=== PATIENT | female | born 1975 | race Caucasian/White ===

== ENCOUNTER → 2017-01-19 | Outpatient (CLI) | payer OTHER ==
[~2017-01-19] MED LIST: ALPR0.5T8 PO; ESCI20TA PO; IOHEXOL 180 MG/ML 20ml INJECTION ONE; LIDOCAINE 1% (10mg/ml) 5ml VIAL ONE; MethylPREDNISolone ACETATE 40mg/1ml ONE; TRAZ-173 PO
--- NOTE | 2017-01-19 12:58 | DI ---
Indication:ITS.REASON: M54.5 LBP Procedure:EPIDURAL INJ.SPINE W FLUO CATH LUMBAR EPIDURAL INJECTION: The patient has low back and radicular pain. The patient has had a previous epidural that provided excellent relief. The details of the procedure, including the benefits, risks, and alternatives were explained to the patient. All of their questions were answered. They stated that they understood and wished to proceed. Informed consent was then obtained. A pre-procedural timeout was performed to confirm the correct patient and procedure. Utilizing aseptic technique, local lidocaine anesthetic, and fluoroscopic guidance throughout, a 22-gauge spinal needle was directed into the lumbar epidural space via an interlaminar approach at the L5-S1 level. Contrast was injected to assure proper positioning of the needle tip. A fluoroscopic image was then taken and archived. Subsequently, 120 mg Depo-Medrol was injected into the epidural space. The patient tolerated the procedure well. IMPRESSION: Successful lumbar epidural steroid injection. Fluoroscopy dose: 8.05 mGy (Cumulative air kerma) Chris Cope RPA/YAIR performed this under my personal supervision. .
== END ==
LOC: IMA 10:52
PROVIDERS: ATTEND Family Medicine
DX: M54.5 Low back pain (principal)
CPT/HCPCS: 62323; J1030; Q9965

== ENCOUNTER → 2017-03-05 | Outpatient (CLI) | payer OTHER ==
[~2017-03-05] MED LIST changes: -IOHEXOL 180 MG/ML 20ml INJECTION ONE; -LIDOCAINE 1% (10mg/ml) 5ml VIAL ONE; -MethylPREDNISolone ACETATE 40mg/1ml ONE
== END ==
LOC: LABN 16:16
PROVIDERS: ATTEND Family Medicine
DX: R19.7 Diarrhea, unspecified (principal)
CPT/HCPCS: 87507

== ENCOUNTER 2017-12-30 09:41 | Inpatient (IN) ==
[2017-12-30] MEDS ORDERED: NS 1,000 ML IV ONE (10:05)
[2017-12-30] MEDS ORDERED: SALINE FLUSH 10ml SYRINGE IVF PRN (10:05)
--- OUTSIDE RECORDS SUMMARY | 2017-12-30 10:11 | External Medical Summary | Continuity of Care Document ---
:1975 Author Organization [facility] Allergies Active Description Code Type Severity Reaction Onset Reported/ Identified Relationship Clinical to Patient Status Yes No Known 21477 3 N/A N/A Drug 0 Allergies Yes latex 8921 1 N/A Unknown Medications There is no data. Problems There is no data. Procedures There is no data. Results There is no data. Encounters ACCT No. Visit Discharge Status Pt. Type Provider Facility Loc./Unit Complaint Date/Time [id number] 08/07/2016 08/07/2016 [facility] Outpatient Etienne, 11:15:00 23:59:59 Marty Thorne [id number] 07/21/2016 07/21/2016 [facility] Outpatient Ronan, 09:30:00 23:59:59 Reginald Ly [id number] 06/17/2016 06/17/2016 [facility] Outpatient Etienne, 15:15:00 23:59:59 Grace Mathews
--- OUTSIDE RECORDS SUMMARY | 2017-12-30 10:11 | External Medical Summary | Summary of Care ---
:1975 Author Name Leah Kilpatrick M.D. Address [address], [place] [id number] Care Team Providers Name Role Phone Kinsey P.A., Cande Unavailable Unavailable Leah Kilpatrick M.D. 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 Started ActiveTraZODone HCl - 100 MG Oral Tablet Refills: 0 Clarence Kilpatrick M.D. Started ActiveXanax 0.5 MG Oral Tablet Refills: 0 Clarence Kilpatrick M.D. Started ActiveClonazePAM 1 MG Oral Tablet Take 1/2 tab po qhs x 1 week, then 1 tab po qhs Quantity: 30 Refills: 5 Kinsey, Cande P.A. Started Active Allergies and Adverse Reactions Name Dates Details No Known Drug Allergies Status: Active Procedures Procedure Dates Details History of Back Surgery History of Oral Surgery Tooth Extraction [place] Tooth History of Ovarian Surgery Procedures not documented Immunization Name Dates Details Immunizations not documented Family History Mother Name Dates Details Family history of hypertension (V17.49, Z82.49) Status: Active Family history of cardiac disorder (V17.49, Z82.49) Status: Active Father Name Dates Details Family history of hypertension (V17.49, Z82.49) Status: Active Family history of High cholesterol (272.0, E78.0) Status: Active Family history of sleep apnea (V19.8, Z82.0) Status: Active Social History Smoking StatusUnknown if ever smoked Vital Signs Date Test Result Details 15:27 BP Systolic 155 mm[Hg] Status: BP Diastolic 99 mm[Hg] Status: Heart Rate 88 /min Status: Height 65 in Status: Weight 156 lb Status: O2 SAT 98 % Status: Body Mass Index Calculated 25.96 kg/m2 Status: Body Surface Area Calculated 1.78 m2 Status: Results Date Description Value Details Results not documented Plan of Care Planned Observations Name Dates Details Planned Goals not documented Goal Planned Encounters Appointment; Provider: Clarence Kilpatrick On 11-Jun-2016 10:45 Instructions Instructions not documented Encounters Appointment; Clarence Kilpatrick On Encounter Diagnosis: Problem not documented 15:15
--- NOTE | 2017-12-30 10:56 | XRay Report ---
Indication: respiratory depression PROCEDURE: XR chest 1V: Encounter: Initial Comparison: None FINDINGS: The lungs are clear. There is no abnormal airspace opacity, pleural effusion or pneumothorax identified. The heart size, pulmonary vasculature and mediastinum are within normal limits. No significant skeletal abnormality is seen. IMPRESSION: No acute cardiopulmonary abnormality. .
--- NOTE | 2017-12-30 12:37 | Emergency Department Report ---
General Adult HPI - General Chief complaint: Overdose Stated complaint: over dose Time Seen by Provider: 12/30/17 10:05 - History of Present Illness HPI narrative: 42-year-old female presents with benzodiazepine overdose. Patient took approximately 20 tablets of Xanax 0.5 mg during the night last night. She also took several clonazepam tablets. She gets one tablet of each daily to use as needed. She also takes prescriptions for Adderall and fluoxetine. Mother which have been overuse or has she overdosed on today. She called her , who is not living in the house currently, and as he arrived she had a mouthful of Flexeril tablets. He swiped them out of her mouth. She had not notified him that she had taken the benzodiazepines during the night and he discovered this when he noticed how sedated she was slurred her voice was. She denies drinking alcohol overnight. She states she did want to during the night, and that she still wishes she wasn't here, but recognizes that she is to take her children. She is concerned that this overdose may cause her custody of her children during a divorce. - Related Data Home Medications Medication Instructions Recorded Confirmed ALPRAZolam [Xanax] 0.5 mg PO TID PRN 12/30/17 12/30/17 ClonazePAM [Klonopin] 1 mg PO HS 12/30/17 12/30/17 Dextroamphetamine/Amphetamine 20 mg PO BID 12/30/17 12/30/17 [Adderall 20 mg Tablet] Fluoxetine HCl 40 mg PO DAILY 12/30/17 12/30/17 Allergies Allergy/AdvReac Type Severity Reaction Status Date / Time No Known Allergies Allergy Verified 12/30/17 09:55 Review of Systems All systems: reviewed and negative except as stated PFS Patient Stated Medical History Depression Yes Clinic Medical History (Last Reviewed 10/07/17 @ 17:04 by Chris Ornelas MD) Anxiety (Chronic Medical) Depression (Chronic Medical) Surgical History: Septoplasty, uterine ablation, spine ablation, wisdom teeth Family History: Family History (Last Reviewed 10/07/17 @ 17:04 by Chris Ornelas MD) Father Arthritis HTN (hypertension) Mother Arthritis Heart attack HTN (hypertension) - Social History Smoking status: Never smoker Physical Exam - Limitations Limitations: altered mental status - General General appearance: lethargic - Normal Exams: Head:: Normocephalic without trauma Chest/Respirations:: Clear all aldrich, with good airflow, and symmetry bilaterally Cardiovascular:: Regular rate and rhythm, without murmur or gallop, Pulses 2+ all extremities, capillary refill, <2 seconds all extremities Abdomen:: Bowel sounds positive, soft, non-tender, non-distended, no hepatosplenomegaly, masses or bruits noted Neurological:: Patient is alert, and oriented, cranial nerves, motor/sensory/ cerebellar, exams w/o gross deficits, to observation - Psychiatric Psychiatric exam: Present: depressed, flat affect, suicidal ideation Course Vital Signs Temperature 97.7 F 12/30/17 09:55 Pulse Rate 79 12/30/17 09:55 Respiratory Rate 12 12/30/17 09:55 Blood Pressure 130/80 12/30/17 09:55 Pulse Oximetry 100 12/30/17 09:55 Temperature 97.7 F 12/30/17 09:55 Pulse Rate 70 12/30/17 10:20 Respiratory Rate 12 12/30/17 09:55 Blood Pressure 130/80 12/30/17 09:55 Pulse Oximetry 100 12/30/17 09:55 Medical Decision Making - MDM Narrative Medical decision making narrative: Peripheral IV started and 1 L of normal saline bolus given. EKG returns negative. Patient's respiratory status and other vitals are appropriate and stable. Medical screening panel of labs was ordered, CBC, CMP, UA, urine drug screen, alcohol level, Tylenol level, aspirin level or return normal. Urine drug screen is appropriate for meds that she normally takes. She understands that she will be admitted to the hospital overnight to make sure that she is medically stable on discharge and on discharge she will be sent to an inpatient psychiatric facility. She states she is voluntary and would like to get some help. I spoke with hospitalist and she'll be admitted to ICU. - Medical Records Medical records reviewed: Yes: I reviewed the patient's medical records. - Lab Data Lab results reviewed: Yes: I reviewed the patient's lab results. Result diagrams: 12/30/17 10:10 12/30/17 10:10 Lab Results 12/30/17 12/30/17 12/30/17 Range/Units 10:10 10:10 10:10 WBC 4.9 (4.5-11.0) T/MM3 RBC 4.81 (4.00-5.20) M/MM3 Hgb 14.2 (12-16) GM/DL Hct 43.1 (36-46) % MCV 89.6 (80-100) UM3 MCH 29.5 (26-34) UUG MCHC 32.9 (31-37) GM/DL RDW Std Deviation 41.7 (36.9-50.2) FL Plt Count 270 (130-400) T/MM3 MPV 10.8 (9.4-12.4) UM3 Immature Gran % (Auto) 0.2 (0.0-0.5) % Neut % (Auto) 46.5 (33-66) % Lymph % (Auto) 37.0 (23-45) % Bates % (Auto) 10.2 H (0-9.0) % Eos % (Auto) 4.9 H (0-4) % Baso % (Auto) 1.2 (0-2) % Neut # (Auto) 2.3 (1.8-7.7) T/MM3 Lymph # (Auto) 1.8 (1-4.8) T/MM3 Bates # (Auto) 0.5 (0-0.8) T/MM3 Eos # (Auto) 0.2 (0-0.5) T/MM3 Baso # (Auto) 0.1 (0-0.2) T/MM3 Abs Immat Gran (auto) 0.01 (0.00-0.03) T/MM3 Turbidity < 20 (0-20) Sodium 145 H (134-144) MEQ/L Potassium 4.4 (3.6-5) MEQ/L Chloride 105 (98-107) MEQ/L Carbon Dioxide 29 (22-30) MEQ/L Anion Gap 11 (5-15) MEQ/L BUN 12.0 (7-17) MG/DL Creatinine 0.7 (0.7-1.2) MG/DL GFR Calculation 92 BUN/Creatinine Ratio 17 (6-26) RATIO Glucose 89 (65-110) MG/DL Calculated Osmolality 278 (261-280) MOSM/KG Calcium 9.7 (8.4-10.2) MG/DL Total Bilirubin 0.40 (0.20-1.30) MG/DL Icterus Index < 2 (0-7) AST 26 (14-36) U/L ALT 31 (9-52) U/L Alkaline Phosphatase 51 (38-126) U/L Total Protein 7.5 (6.3-8.2) G/DL Albumin 4.4 (3.5-5.0) G/DL Globulin 3.1 (2.4-3.6) G/DL Albumin/Globulin Ratio 1.4 (1.1-2.2) RATIO Specimen Hemolysis < 15 (0-25) Ur Collection Type Urine, void-cc/notcc Urine Color Yellow (YELLOW) Urine Clarity Clear Urine pH 6.5 (5.0-8.0) Ur Specific [place] <=1.005 L (1.015-1.025) Urine Protein Negative (NEGATIVE) Urine Glucose (UA) Negative (NEGATIVE) Urine Ketones Negative (NEGATIVE) Urine Occult Blood 2+ A (NEGATIVE) Urine Nitrate Positive A (NEGATIVE) Urine Bilirubin Negative (NEGATIVE) Urine Urobilinogen 0.2 (NORMAL) EU/DL Ur Leukocyte Esterase Trace A (NEGATIVE) Urine RBC 1-3 (0-3) /HPF Urine WBC 1-3 (0-5) /HPF Ur Squamous Epith Cells 10-20 Urine Bacteria 2+ H (NEGATIVE) Ur Culture Indicated? Cult not indicated Salicylates < 1.0 L (2-20) MG/DL Acetaminophen < 10 L (10-30) UG/ML Alcohol, Quantitative <10 (<10) MG/DL - Radiology Data Radiology results reviewed: Yes: I reviewed the patient's radiology results. - EKG Data EKG #1 EKG attestation: Yes: I reviewed and interpreted this EKG. EKG shows normal: sinus rhythm Rate: normal Rhythm: NSR [place]/QRS: normal Disposition Clinical Impression: Drug overdose, Suicidal ideation Disposition: 02 To OBS [facility] [place] Prescriptions: No Action ALPRAZolam [Xanax] 0.5 mg PO TID PRN PRN Reason: Anxiety Dextroamphetamine/Amphetamine [Adderall 20 mg Tablet] 20 mg PO BID ClonazePAM [Klonopin] 1 mg PO HS Fluoxetine HCl 40 mg PO DAILY Referrals: Pete Guevara MD [Family Provider] - Time of Disposition: 12:42 - Seen By: physician
[2017-12-30] MEDS ORDERED: ONDANSETRON 4 MG/2 ML INJECTION IVP PRN (13:11)
[2017-12-30] MEDS ORDERED: ACETAMINOPHEN 500 MG TABLET PO PRN (13:22)
--- NOTE | 2017-12-30 13:23 | History & Physical Report ---
History of Present Illness Date: 12/30/17 Chief complaint: intentional drug overdose, suicide attempt HPI: Doc Choi is a 42-year-old patient of Dr. Pete Guevara who was brought into [facility] ED today, 12/30/17, after she called her estranged and reported that she had overdosed on prescription medications. She reportedly took approximately 20, Xanax 0.5mg tablets last night as well as approximately 8, clonazepam 1mg tables with the intent to harm herself. When her , who is not currently living with her, arrived, she had a mouthful of Flexeril tables which he was able to swipe out of her mouth. Upon his arrival, he also noted she was very sedated with slurred speech. She denied taking any other medications, other drug use or alcohol last night. During evaluation in the ED, she was very drowsy and stated that her "life is falling apart" and she "wanted to escape". Her reports that he recently completed treatment for alcohol abuse and that he and Doc are currently going through a divorce. Initial vital signs were stable. Labs were unremarkable with the exception of mild hypernatremia (Na 145). UA was contaminated with 10-20 squamous epithelial cells, though culture is pending. ASA, tylenol and alcohol levels were all negative. Chest x-ray revealed no acute cardiopulmonary abnormalities. Due to her intentional drug overdose with concern for her safety as well as her increased sedation, Dr. Ambrosio was consulted and she was admitted into inpatient status in ICU for close respiratory and cardiac monitoring, close neurologic monitoring, IV hydration and psychiatric evaluation. Her length of stay is expected to exceed more than 2 over nights. She is seen on exam immediately after her arrival to ICU with nursing present. She is very drowsy and sleeping soundly. She awakens with loud voice stimuli but quickly falls back to sleep. The majority of her history is obtained from prior medical records, ED records, nursing notes and EMS report. No family is present on exam. Review of Systems ROS unobtainable: due to mental status Review of systems: Unable to obtain due to patient's extreme drowsiness from overdose medications. - Constitutional Constitutional: Present: fatigue - EENMT Nose: Absent: nosebleeds Mouth/Throat: Present: dry mouth - Cardiovascular Cardiovascular: Absent: edema Rhythm: Present: regular rhythm Vascular: Absent: pedal edema - Respiratory Respiratory: Absent: cough, wheezing - Gastrointestinal Gastrointestinal: Absent: nausea, vomiting - Genitourinary Menstruation: post hysterectomy - Musculoskeletal Musculoskeletal: Absent: back pain - Integumentary/Breasts Integumentary: Absent: rash - Neurological Neurological: Present: weakness - Psychiatric Psychiatric: Present: anxiety, depression, suicidal ideation Past Medical History Clinic Medical History Anxiety. Depression. Significant life stressors. Surgical History: Septoplasty. Uterine ablation. Spine ablation. [place] teeth. Family History Updates: Father - Arthritis, HTN (hypertension). Mother - Arthritis, Heart attack, HTN (hypertension). 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 Pete Guevara. Medications Home Medications Medication Instructions Recorded Confirmed Type ALPRAZolam [Xanax] 0.5 mg PO TID PRN 12/30/17 12/30/17 History ClonazePAM [Klonopin] 1 mg PO HS 12/30/17 12/30/17 History Dextroamphetamine/Amphetamine 20 mg PO BID 12/30/17 12/30/17 History [Adderall 20 mg Tablet] Fluoxetine HCl 40 mg PO DAILY 12/30/17 12/30/17 History Allergies Allergy/AdvReac Type Severity Reaction Status Date / Time No Known Allergies Allergy Verified 12/30/17 09:55 Exam Vital Signs: Temperature 98.3 F 12/30/17 12:49 Pulse Rate 61 12/30/17 12:49 Respiratory Rate 13 12/30/17 12:49 Blood Pressure 103/61 12/30/17 12:49 Pulse Oximetry 100 12/30/17 12:49 Telemetry Rhythm: Sinus Rhythm Height/Weight/BMI: Height 5 ft 6 in Weight 143 lb 11.862 oz Body Mass Index 23.1 Comments: Patient is seen immediately after arrival to ICU. She is very drowsy and awakens with very load voice and pain but quickly falls back to sleep, limiting exam. - Constitutional Present: no acute distress, well nourished, well developed, somnolent, other ( drowsy) - Routine HEENT Exam Head: Present: normocephalic, atraumatic ENT: Present: mucous membranes dry - Routine Neck Exam Present: supple, trachea midline - Routine Chest/Breast/Axilla Exam Chest wall: Absent: pacemaker - Routine Respiratory Exam Present: CTA bilaterally. Absent: rales, respiratory distress, rhonchi, stridor , wheezes Comments: poor inspiratory effort without signs of distress. - Routine Cardiovascular Exam Present: RRR, S1, S2 - Routine Abdominal Exam Present: soft, non distended, non tender Comments: hypoactive bowel sounds. - Routine Extremities Exam Present: no edema, pulses intact - Routine Back/Spine/Pelvis Exam Back/Spine: Absent: vertebral tenderness - Routine Skin Exam Present: dry, warm. Absent: jaundice Comments: afebrile. - Routine Neurological Exam Present: hearing grossly intact. Absent: facial asymmetry drowsy, somnolent and arouses with loud voice stimuli and painful stimuli but quickly falls back to sleep. - Routine Psychiatric Exam Present: suicidal ideation, depressed Results - Labs CBC & Chem 7: 12/30/17 10:10 12/30/17 10:10 Assessment and Plan (1) Drug overdose Current visit: Yes Status: Acute (2) Suicidal ideation Current visit: Yes Status: Acute Assessment and Plan: 42-year-old female patient of Dr. Guevara was admitted after intentional multidrug overdose with the intent to harm herself. Assessment: Intentional multidrug overdose, present on admission, acute. Suicidal ideation, acute. Hypernatremia, present on admission. Significant life stressors. Anxiety. Depression. Plan - 12/30/17: Admit to ICU inpatient status under the care of Dr. Ambrosio. Initiate suicide precautions and monitor closely for attempts to harm self. Will consult psychiatry for evaluation and treatment recommendations once patient becomes more alert. Monitor closely on telemetry with continuous pulse oximetry given level of drowsiness. Elevate head of bed and monitor closely for signs of aspiration. Oxygen as needed to maintain SAO2 >90%, weaning as able. Patient given 1L NS in ED. Continue NS 100cc/hr for hydration. Monitor closely for urinary retention and urinary output. Speech therapy to assess swallow function prior to oral intake. Zofran as needed for nausea/vomiting. Will try and obtain UDS once patient is able to give consent. Initial UA appeared contaminated with 10-20 epithelial cells. Patient unable to articulate symptoms of UTI. Urine culture pending. Will hold off on medication at this time as patient is afebrile. Pepcid IV for GI protection. SCDs for DVT prophylaxis. Upon discharge, patient's care will be returned to her PCP, Dr. Guevara. DVT Prophylaxis: SCD's GI Prophylaxis: Pepcid Resuscitation Status: Full Code - Time spent with patient Time with patient PN: 50 minutes - Physician Narrative Physician: Aly Ambrosio MD Narrative: Date: 12/30/17 Time: 1754 I have independently evaluated and examined this patient. I reviewed the chart, the patient's history, and the [employer]IST/PA's documented findings as above. We discussed and formulated the assessment and plan as above with additions as below: Patient is lethargic. She says she took 4 Xanax then took more after her left, about 5 p.m. last night. Records indicate she also took clonazepam and attempted to take Flexeril in her 's presence. Patient says she didn't know why she took the pills. Lethargic. CTAB. RRR. s/nt/nd. No edema. JIANG Suicide precautions in place. Psychiatry consulted. Supportive care for benzo overdose and monitor for withdrawal Hospital Course Summary Disclaimer: The visit summary below is not to be considered part of the above Progress Note. Hospital Course: Plan - 12/30/17: Admit to ICU inpatient status under the care of Dr. Ambrosio. Initiate suicide precautions and monitor closely for attempts to harm self. Will consult psychiatry for evaluation and treatment recommendations once patient becomes more alert. Monitor closely on telemetry with continuous pulse oximetry given level of drowsiness. Elevate head of bed and monitor closely for signs of aspiration. Oxygen as needed to maintain SAO2 >90%, weaning as able. Patient given 1L NS in ED. Continue NS 100cc/hr for hydration. Monitor closely for urinary retention and urinary output. Speech therapy to assess swallow function prior to oral intake. Zofran as needed for nausea/vomiting. Will try and obtain UDS once patient is able to give consent. Initial UA appeared contaminated with 10-20 epithelial cells. Patient unable to articulate symptoms of UTI. Urine culture pending. Will hold off on medication at this time as patient is afebrile. Pepcid IV for GI protection. SCDs for DVT prophylaxis. Upon discharge, patient's care will be returned to her PCP, Dr. Guevara. Addendum entered and electronically signed by CEASAR [place] 12/30/17 15: 42: Discussed patient case with Dr. Bermudez. She plans to see the patient in AM on 12/31/17 for psychiatric evaluation. Recommends monitoring the patient closely with signs of withdrawal from benzos, similar to alcohol withdrawal, as well as seizure precautions. Ativan 0.5mg IV Q4H PRN for signs of withdrawal/ seizures. Patient is currently a voluntary admission but should not be allowed to leave AMA due to the risk of harm to herself and possibly others. If she were to leave, please notify the police immediately.
[2017-12-30] MEDS: NS 1,000 ML IV SCH ×2 (13:28→23:55)
[2017-12-30] MEDS ORDERED: FAMOTIDINE PB 20 MG/50 ML BAG IV SCH (21:00)
[2017-12-31 00:30] VITALS: BMI 24.6
[2017-12-31 04:12] VITALS: TEMP 97.8
[2017-12-31 07:15] VITALS: O2SAT 97
[2017-12-31] MEDS: NS 1,000 ML IV SCH (10:26)
--- NOTE | 2017-12-31 12:46 | Progress Note ---
- Date 12/31/17 Subjective: Patient more alert. Has been up to commode and has eaten. No n/v. No soa. No seizure activity. She says she took alprazolam and clonazepam yesterday after getting her kids off to school. She says she was trying to hurt her . She denies suicidal ideation at this time. She says she has arranged to meet with her therapist as early as tomorrow. Objective Vital signs: Temperature 97.8 F 12/31/17 04:00 Pulse Rate 53 L 12/31/17 08:00 Respiratory Rate 15 12/31/17 07:00 Blood Pressure 97/60 12/31/17 06:00 Pulse Oximetry 97 12/31/17 07:00 Rhythm: Normal Sinus Rhythm Height/Weight/BMI: Height 5 ft 4 in Weight 65.2 kg Body Mass Index 24.6 - Constitutional Present: no acute distress - Routine HEENT Exam Head: Present: normocephalic, atraumatic Eye: Present: EOMI, PERRL ENT: Present: mucous membranes moist - Routine Respiratory Exam Present: CTA bilaterally - Routine Cardiovascular Exam Present: RRR, S1, S2 - Routine Abdominal Exam Present: soft, normoactive bowel sounds, non distended, non tender - Routine Extremities Exam Present: no edema - Routine Neurological Exam Present: alert, oriented X3, moving all extremities - Routine Psychiatric Exam Present: depressed Results - Labs CBC & Chem 7: 12/31/17 03:56 12/31/17 03:56 Assessment and Plan (1) Drug overdose Current visit: Yes Status: Acute (2) Suicidal ideation Current visit: Yes Status: Acute Assessment and Plan: 42-year-old female patient of Dr. Guevara was admitted after intentional multidrug overdose with the intent to harm herself. Assessment: Intentional multidrug overdose, present on admission, acute. Suicidal ideation, acute. Hypernatremia, present on admission. Significant life stressors. Anxiety. Depression. Plan - 12/30/17: Suicide precautions in place. Dr. Bermudez consulted. Pt taking po well enough to DC IVF. Ativan available for any withdrawal. DC Pepcid IV for GI protection. SCDs for DVT prophylaxis. Medically stable. Await psychiatry recommendation for dismissal plan. - Physician Narrative Narrative: Date: 12/31/17 Time: 1243 Hospital Course Summary Disclaimer: The visit summary below is not to be considered part of the above Progress Note. Hospital Course: Plan - 12/30/17: Admit to ICU inpatient status under the care of Dr. Ambrosio. Initiate suicide precautions and monitor closely for attempts to harm self. Will consult psychiatry for evaluation and treatment recommendations once patient becomes more alert. Monitor closely on telemetry with continuous pulse oximetry given level of drowsiness. Elevate head of bed and monitor closely for signs of aspiration. Oxygen as needed to maintain SAO2 >90%, weaning as able. Patient given 1L NS in ED. Continue NS 100cc/hr for hydration. Monitor closely for urinary retention and urinary output. Speech therapy to assess swallow function prior to oral intake. Zofran as needed for nausea/vomiting. Will try and obtain UDS once patient is able to give consent. Initial UA appeared contaminated with 10-20 epithelial cells. Patient unable to articulate symptoms of UTI. Urine culture pending. Will hold off on medication at this time as patient is afebrile. Pepcid IV for GI protection. SCDs for DVT prophylaxis. Upon discharge, patient's care will be returned to her PCP, Dr. Guevara. / Suicide precautions in place. Dr. Bermudez consulted. Pt taking po well enough to DC IVF. Ativan available for any withdrawal. DC Pepcid IV for GI protection. SCDs for DVT prophylaxis. Medically stable. Await psychiatry recommendation for dismissal plan.
[2017-12-31 15:58] VITALS: BP 119/66; PULSE 65; RESP 19
--- NOTE | 2017-12-31 16:42 | Discharge Summary ---
Discharge Information Date of admission: 12/30/17 12:40 Anticipated date of discharge: 12/31/17 Attending Physician: Aly Ambrosio IV, MD Primary care physician: Pete Guevara MD Consults: Consulting Provider: Nadja Bermudez Reason For Exam: SI, intentional overdose - Discharge Diagnosis (1) Drug overdose Status: Acute (2) Suicidal ideation Status: Acute Intentional multidrug overdose Suicidal ideation. Hypernatremia, present on admission - resolved. Significant life stressors. Anxiety. Depression. - Laboratory Labs: 12/31/17 03:56 12/31/17 03:56 - Radiology Radiology: Date of Exam: 12/30/17 Type of Exam(s): XR chest 1V FINDINGS: The lungs are clear. There is no abnormal airspace opacity, pleural effusion or pneumothorax identified. The heart size, pulmonary vasculature and mediastinum are within normal limits. No significant skeletal abnormality is seen. IMPRESSION: No acute cardiopulmonary abnormality. History of Present Illness HPI: Doc Choi is a 42-year-old patient of Dr. Pete Guevara who was brought into [facility] ED today, 12/30/17, after she called her estranged and reported that she had overdosed on prescription medications. She reportedly took approximately 20, Xanax 0.5mg tablets last night as well as approximately 8, clonazepam 1mg tables with the intent to harm herself. When her , who is not currently living with her, arrived, she had a mouthful of Flexeril tables which he was able to swipe out of her mouth. Upon his arrival, he also noted she was very sedated with slurred speech. She denied taking any other medications, other drug use or alcohol last night. During evaluation in the ED, she was very drowsy and stated that her "life is falling apart" and she "wanted to escape". Her reports that he recently completed treatment for alcohol abuse and that he and Doc are currently going through a divorce. Initial vital signs were stable. Labs were unremarkable with the exception of mild hypernatremia (Na 145). UA was contaminated with 10-20 squamous epithelial cells, though culture is pending. ASA, tylenol and alcohol levels were all negative. Chest x-ray revealed no acute cardiopulmonary abnormalities. Due to her intentional drug overdose with concern for her safety as well as her increased sedation, Dr. Ambrosio was consulted and she was admitted into inpatient status in ICU for close respiratory and cardiac monitoring, close neurologic monitoring, IV hydration and psychiatric evaluation. Her length of stay is expected to exceed more than 2 over nights. She is seen on exam immediately after her arrival to ICU with nursing present. She is very drowsy and sleeping soundly. She awakens with loud voice stimuli but quickly falls back to sleep. The majority of her history is obtained from prior medical records, ED records, nursing notes and EMS report. No family is present on exam. Objective Vital signs: Temperature 97.8 F 12/31/17 04:00 Pulse Rate 65 12/31/17 15:45 Respiratory Rate 19 12/31/17 15:45 Blood Pressure 119/66 12/31/17 15:04 Pulse Oximetry 97 12/31/17 15:45 Rhythm: Normal Sinus Rhythm Height/Weight/BMI: Height 1.63 m Weight 65.2 kg Body Mass Index 24.6 Hospital Course This is a general summary of the patient's hospital course. For more details refer to the complete medical record. Hospital course: Doc was admitted to the CCU on 12/30/17, suicide precautions were put into place. She was monitored on telemetry and pulse ox, which remained stable throughout her hospital stay. Despite somnolence and risk for respiratory depression she did not require supplemental oxygen. IVF were provided, and were dc'd once her oral intake improved. Sodium level improved to 143 on day of discharge. Other labs remained stable as well. She was evaluated by Dr. Bermudez, who recommended discontinuing Adderall and Xanax. The most common withdrawal effect of stopping Adderall is subjective feeling of tiredness/ fatigue. Doc was deemed safe for discharge, and already has f/u plans with her therapist, Janeth Carroll, established for 01/01/18. She will see her psychiatrist on 01/10/18. She voiced an understanding and was discharged home in stable condition. Time spent with patient: discharge greater than 30 minutes Resuscitation Status: Full Code Discharge Plan - Discharge Disposition Discharge Date: 12/31/17 Disposition: 01 Discharged Home, Self-Care *Condition: Stable Reason For Visit (Visit label in EMR): over dose - Discharge Medications *Discharge Medications: Continue ClonazePAM [Klonopin] 1 mg PO HS Fluoxetine HCl 40 mg PO DAILY Discontinued ALPRAZolam [Xanax] 0.5 mg PO TID PRN PRN Reason: Anxiety Dextroamphetamine/Amphetamine [Adderall 20 mg Tablet] 20 mg PO BID - Discharge Packet/Instructions *Diet: Regular *Activity: As tolerated. No restrictions. *Pain Management/Treatment: Tylenol or ibuprofen if needed. *Wound Care: N/A *Expected Signs/Symptoms: Tired/fatigued from medications and possibly as your body adjusts to being off of Adderall. *Notify Physician if: Increased depression or thoughts of harming self; difficulty breathing; or any new concerns. *During Business Hours Contact: Janeth Grey, or your psychiatrist. *After Business Hours Contact: The import coordination and production head provider for Janeth Grey, or your psychiatrist. *Pending Lab/Results: No Pending Lab - Referrals/Follow Up *Referrals/Follow Up: Pete Guevara MD [Family Provider] - 1 Week - Patient Handouts - Dismissal Complete Discharge Instructions are:: Complete Physician Narrative - Narrative Attestation Narrative: Date: 12/31/17 Time: 9855
--- NOTE | 2017-12-31 23:40 | Neuropsychiatric Consult ---
[facility] Date: 01/01/18 Requesting Physician: Arslan Ambrosio IV Reason for Consultation: Safety evaluation Start Time: 15:00 Stop Time: 16:00 Care: >50% of this visit spent in counseling/coordination care. History of Present Illness: Patient is a 42-year-old , employed, mother of 3 and 1 stepdaughter, admitted to [facility] on 12/30/17 s/p suicide attempt by overdose on #20 Xanax 0.5mg tablets, #8 Klonopin 1mg tablets. Patient had also put Flexeril in her mouth but it is not believed that she swallowed them. Patient did this in the context of an argument with her who she is from, and told him at the time of overdose so that he was able to get her help. Patient did state at the time that she wanted to escape. Patient details to me the last several months of stressors with her , who is addicted to using meth. He went to rehab and got out earlier this week, she soon found out he had still been using through and after rehab, and additionally, has been cheating on her with another woman. She made the decision to file papers that day. On the day of overdose, they got into an argument over the phone and began threatening each other about what they would take financially, etc. She said she would just make it easier for him to destroy her by dying and then told him she had overdosed. When she is telling me this, I believe it was more of a manipulation tactic to engage him rather than a true suicide attempt. I had a very arslan conversation with the patient about their children and who was going to step up to be the reliable parent they needed. She states she feels much more clear-headed, has made the decision to divorce now, is already obtaining family and individual therapy and worries that if she were to go to inpatient hospitalization it would affect her divorce/custody proceedings. She is willing to stay with her parents (along with the children) until things are more stable and states that she will have her mother communicate with the ex- in regards to the children so that she is removed from the situation. Patient denies any recent substance use other than drinking socially on the weekends. 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 Past psych: Patient has been diagnosed with depression, anxiety, and ADHD. She sees a PA, Dominick, at [facility] in [place] and takes Prozac 40mg, Klonopin 1mg at , and Adderall 20mg PO BID. She also has Xanax 0.5mg available but says she rarely uses this medication. Recommended stopping Xanax, Adderall until f/u appointment with med provider, which she agreed to do. Denies prior suicide attempts, hospitalizations, psychosis or symptoms consistent with BAD. I spoke with patient's mother who also said they have had some serious conversations and she is in favor of the patient returning home with her and her , as well as patient's children. She feels she is safe to do so and f /u with her outpatient providers (therapist and med provider). She agrees that the crisis has now resolved and patient agrees to move on from marriage as she doesn't feel will be able to remain sober from meth. She denies that the patient has any access to firearms. I also recommended that mother keep and manage patient's medications. Discussed crisis plans at length with both patient and mother, who expressed understanding. [facility] Patient Stated Medical History Depression Yes Clinic Medical History (Last Reviewed 10/07/17 @ 17:04 by Chris Ornelas MD) Anxiety (Chronic Medical) Depression (Chronic Medical) Surgical History: Septoplasty. Uterine ablation. Spine ablation. [place]on teeth. Family History: Family History (Last Reviewed 10/07/17 @ 17:04 by Chris Ornelas MD) Father Arthritis HTN (hypertension) Mother Arthritis Heart attack HTN (hypertension) Family History Updates: Father - Arthritis, HTN (hypertension). Mother - Arthritis, Heart attack, HTN (hypertension). - Social History Smoking status: Never smoker Substance use type: former substance user (distant past) Alcohol intake frequency: other (social drinker on weekends) Last drink: unknown Housing: house Household members: children, other (currently estranged from her .) Current occupational status: employed (robotics technologist at [employer]) Does patient use chewing tobacco?: No Current residence: Apartment/Private Home Review of Systems All systems: reviewed and no additional remarkable complaints except as stated - EENMT Nose: Absent: nosebleeds Mouth/Throat: Present: dry mouth - Cardiovascular Rhythm: Present: regular rhythm Vascular: Absent: pedal edema - Genitourinary Menstruation: post hysterectomy - Psychiatric Psychiatric: Present: as per HPI, anxiety, panic attacks (rare). Absent: abnormal sleep pattern, auditory hallucinations, behavioral changes, hallucinations, homicidal ideation, hopelessness, paranoia, suicidal ideation, visual hallucinations Mental Status Exam Vitals: Last Vital Signs Temp 97.8 F 12/31/17 04:00 Pulse 65 12/31/17 15:45 Resp 19 12/31/17 15:45 BP 119/66 12/31/17 15:04 Pulse Ox 97 12/31/17 15:45 Height: 1.63 m Weight: 65.2 kg - Mental Status Exam Muscle Strength/Tone: Normal Dressing: Casual Grooming: Fair Attitude: Cooperative Motor Activity: Normal Eye Contact: Good Speech: Normal Volume: Normal Rhythm: Appropriate Rhythm Sensory: Alert Orientation: Oriented X4 Mood: Other (sad about state of marriage but future-oriented) Affect: Sad Rate of Thoughts: Appropriate Rate Thought Organization: Organized Associations: Intact Abstract Reasoning: Intact, able to abstract Thought Content: Ruminations (about relationship with and how this will affect their chidlren) Perception/Psychotic: Perception Normal Language: Naming Intact Fund of Knowledge: Appropriate Memory: Grossly Intact Suicidal Ideation: Denies Homicidal Ideation: Denies Insight: Fair Judgement: Fair Impulse Control: Fair - Laboratory Result Diagrams: 12/31/17 03:56 12/31/17 03:56 Laboratory Results - last 24 hr 12/30/17 12/31/17 12/31/17 20:07 00:12 00:12 WBC RBC Hgb Hct MCV MCH MCHC RDW Std Deviation Plt Count MPV Immature Gran % (Auto) Neut % (Auto) Lymph % (Auto) Hunt % (Auto) Eos % (Auto) Baso % (Auto) Neut # (Auto) Lymph # (Auto) Hunt # (Auto) Eos # (Auto) Baso # (Auto) Abs Immat Gran (auto) Turbidity Sodium Potassium Chloride Carbon Dioxide Anion Gap BUN Creatinine GFR Calculation BUN/Creatinine Ratio Glucose Glucometer 113 Calculated Osmolality Calcium Total Bilirubin Icterus Index AST ALT Alkaline Phosphatase Total Protein Albumin Globulin Albumin/Globulin Ratio Specimen Hemolysis Urine Opiates Screen Negative Ur Oxycodone Screen Negative Urine Methadone Screen Negative Ur Propoxyphene Screen Negative Ur Barbiturates Screen Negative U Tricyclic Antidepress Positive Ur Phencyclidine Scrn Negative Ur Amphetamines Screen Positive U Methamphetamines Scrn Negative U Benzodiazepines Scrn Positive Urine Cocaine Screen Negative U Cannabinoids Screen Negative Ur Drug Screen Confirm Sent out 12/31/17 12/31/17 12/31/17 03:56 03:56 06:26 WBC 5.9 RBC 4.12 Hgb 12.2 D Hct 37.6 D MCV 91.3 MCH 29.6 MCHC 32.4 RDW Std Deviation 41.9 Plt Count 221 MPV 11.2 Immature Gran % (Auto) 0.2 Neut % (Auto) 44.6 Lymph % (Auto) 42.1 Hunt % (Auto) 7.5 Eos % (Auto) 4.6 H Baso % (Auto) 1.0 Neut # (Auto) 2.6 Lymph # (Auto) 2.5 Hunt # (Auto) 0.4 Eos # (Auto) 0.3 Baso # (Auto) 0.1 Abs Immat Gran (auto) 0.01 Turbidity < 20 Sodium 143 Potassium 4.0 Chloride 110 H Carbon Dioxide 24 Anion Gap 9 BUN 15.0 Creatinine 0.7 GFR Calculation 92 BUN/Creatinine Ratio 21 Glucose 95 Glucometer 91 Calculated Osmolality 276 Calcium 8.6 D Total Bilirubin 0.20 Icterus Index < 2 AST 19 ALT 31 Alkaline Phosphatase 38 Total Protein 5.7 L Albumin 3.0 L Globulin 2.7 Albumin/Globulin Ratio 1.1 Specimen Hemolysis < 15 Urine Opiates Screen Ur Oxycodone Screen Urine Methadone Screen Ur Propoxyphene Screen Ur Barbiturates Screen U Tricyclic Antidepress Ur Phencyclidine Scrn Ur Amphetamines Screen U Methamphetamines Scrn U Benzodiazepines Scrn Urine Cocaine Screen U Cannabinoids Screen Ur Drug Screen Confirm Assessment and Plan (1) Adjustment disorder with mixed disturbance of emotions and conduct Status: Acute (2) History of depression Status: Acute (3) History of anxiety disorder Status: Acute Discharge to home with mother who agrees to supervise for safety 24/05 until patient has had appointments with therapist, med provider ([facility] in [place]). Recommended continuing Prozac, HS Klonopin but holding Adderall (as it may increase anxiety) and Xanax until f/u appointment. She plans to discuss these meds with med provider then. As in HPI, patient and mother both feel it is safe for her to discharge to home with mother now that crisis has resolved and agree to seek assistance if any thoughts of self-harm return. Mother denies access to guns and agrees to manage patient's meds while she is in her home. Crisis plan discussed and agreed upon by all.
== END 2017-12-31 17:30 | disposition home or self-care (01) | DRG 918 ==
LOC: ED 09:41 → CCU 12:40
PROVIDERS: ADMIT Hospitalist; ATTEND Hospitalist